=== PATIENT | female | born 1985 | race Caucasian/White ===

== ENCOUNTER 2016-06-22 18:59 | Emergency (ER) ==
[2016-06-22 19:18] VITALS: BP 117/82; TEMP 98.6; BMI 22.1
--- NOTE | 2016-06-22 19:29 | ED.PDOC ---
General ED Provider: Dr. JONATHON CORREA Chief Complaint: Thrush Stated Complaint: Patient states she noticed that her tongue was swollen after using an new flavor of Vaping. Swelling are on both side of tongue. Time Seen by Physician: 19:27 Mode of Arrival: Walk-In Information Source: Patient Exam Limitations: No limitations Primary Care Provider: BANDAR CUBA Nursing and Triage Documentation Reviewed and Agree: Yes EENT Complaint Exam - Dental/Oral Complaint/Exam Mechanism of Injury: No known trauma (used new vaping flavor) Timing: Constant Initial Severity: Mild Current Severity: Mild Character: Reports: Sharp Aggravating: Reports: None Alleviating: Reports: None Associated Signs and Symptoms: Denies: Swelling, Discharge, Fever, Foul odor, Foul taste in mouth Review of Systems - Review Of Systems Constitutional: Reports: No symptoms Eyes: Reports: No symptoms Ears, Nose, Mouth, Throat: Reports: Mouth pain, Mouth swelling Respiratory: Reports: No symptoms Cardiac: Reports: No symptoms GI: Reports: No symptoms : Reports: No symptoms Musculoskeletal: Reports: No symptoms Skin: Reports: No symptoms Neurological: Reports: Anxiety Endocrine: Reports: No symptoms Hematologic/Lymphatic: Reports: No symptoms All Other Systems: Reviewed and Negative Past Medical History - Past Medical History Endocrine: Reports: Hypothyroid Cardiovascular: Reports: None Respiratory: Reports: None Hematological: Reports: None Gastrointestinal: Reports: None Genitourinary: Reports: None Neuro/Psych: Reports: Anxiety, Depression, Other (Panic attack ) Musculoskeletal: Reports: None Cancer: Reports: None Last Menstrual Period: PT HAS HAD A HYSTERECTOMY - Surgical History General Surgical History: Reports: Hysterectomy, Tubal ligation - Family History Family History: Reports: None - Social History Smoking Status: Former smoker, Vaping Hx Substance Use: Yes (vaping ) Alcohol Screening: None - Immunizations Tetanus Shot up to Date: Yes Physical Exam - Physical Exam Appearance: Well-appearing Eyes: YURY, EOMI, Conjunctiva clear Neck: Supple Respiratory: Airway patent, Breath sounds clear, Breath sounds equal, Respirations nonlabored Cardiovascular: Tachycardia Neurological: Sensation intact, Motor intact, Reflexes intact, Cranial nerves intact, Alert, Oriented Psychiatric: Anxious Critical Care Note - Critical Care Note Total Time (mins): 0 Course - Course Vital Signs: Temp Pulse Resp BP Pulse Ox 06/22/16 19:02 98.6 F 102 H 18 117/82 100 Departure - Departure Time of Disposition: 19:50 Disposition: HOME SELF-CARE Discharge Problem: Thrush, oral Angioedema Qualifiers: Encounter type: initial encounter Qualifier Code: (T78.3XXA) Angioneurotic edema, initial encounter Instructions: Angioedema (ED), Oral Candidiasis (ED) Condition: Stable Pt referred to PMD for follow-up: Yes Additional Instructions: take medications (steroids) as prescribed. Stop Using VAPING agents. Prescriptions: Methylprednisolone [Medrol Dosepak] 4 mg PO DIRECTED #1 pkg Nystatin [Nystatin Oral Susp] 5 ml PO ACHS #100 cup Allergies/Adverse Reactions: Allergies aspirin Adverse Reaction (Verified 06/22/16 19:08) NOSEBLEEDS Home Medications: Ambulatory Orders Gabapentin 600 mg PO TID 05/24/14 Ibuprofen [Motrin] 600 mg PO Q6H PRN #30 tablet 05/24/14 Methylprednisolone [Medrol Dosepak] 4 mg PO DIRECTED #1 pkg 06/22/16 Nystatin [Nystatin Oral Susp] 5 ml PO ACHS #100 cup 06/22/16 Disposition Discussed With: Patient, Family
[2016-06-22] MEDS ORDERED: SOLU-MEDROL 125 MG IM STA (19:35)
== END 2016-06-22 20:05 | disposition home or self-care (01) ==
LOC: ED 18:59
DX: B37.0 Candidal stomatitis (principal); T78.3XXA Angioneurotic edema, initial encounter; F17.290 Nicotine dependence, other tobacco product, uncomplicated
CPT/HCPCS: 96372; 99282

== ENCOUNTER 2017-01-26 19:17 | Emergency (ER) ==
[2017-01-26 19:33] VITALS: BP 128/80; TEMP 98.5; BMI 21.9
[2017-01-26] MEDS ORDERED: SODIUM CHLORIDE 1,000 ML IV STA (19:35)
[2017-01-26 19:51] LABS: BASOPHILS # (AUTO) 0.1 K/uL (0-0.2); BASOPHILS % (AUTO) 0.6 % (0.0-3.0); EOSINOPHILS # (AUTO) 0.3 K/ul (0.0-0.7); EOSINOPHILS % (AUTO) 2.4 % (0.0-7.0); HEMATOCRIT 40.4 % (37.0-47.0); HEMOGLOBIN 14.3 g/dl (12.0-16.0); IMMATURE GRANULOCYTE % (AUTO) 0.3 % (0.0-5.0); LYMPHOCYTES # (AUTO) 3.4 K/uL (0.60-3.4); MEAN CORPUSCULAR HEMOGLOBIN 32.1 pg (27.0-31.0); MEAN CORPUSCULAR HGB CONC 35.4 (31.8-35.4); MEAN CORPUSCULAR VOLUME 90.6 fl (81.0-99.0); MONOCYTES # (AUTO) 0.7 K/uL (0.4-2.0); MONOCYTES % (AUTO) 5.4 (0-10); NEUTROPHILS # (AUTO) 7.8 K/ul (2.0-6.9); NEUTROPHILS % (AUTO) 63.3; PLATELET COUNT 320 10^3/uL (140-440); RED BLOOD COUNT 4.46 10^6/ul (4.20-5.40); WHITE BLOOD COUNT 12.25 K/ul (4.6-10.2)
[2017-01-26 20:08] LABS: BILIRUBIN,URINE Negative (NEGATIVE); KETONES,URINE Negative (NEGATIVE); LEUKOCYTE ESTERASE ,URINE Negative (NEGATIVE); NITRITE,URINE Negative (NEGATIVE); PROTEIN,URINE Negative (NEGATIVE); URINE, BLOOD Negative (NEGATIVE)
[2017-01-26 20:14] LABS: ALBUMIN 3.7 g/dL (3.4-5.0); ALBUMIN/GLOBULIN RATIO 1.09; ANION GAP 14.9; BILIRUBIN,TOTAL 0.17 mg/dL (0.00-1.20); BUN/CREATININE RATIO 9.41; CALCIUM 9.8 mg/dL (8.2-10.2); CREATININE 0.85 mg/dL (0.60-1.30); POTASSIUM 3.9 mmol/L (3.5-5.10); TOTAL PROTEIN 7.1 g/dL (6.4-8.2)
[2017-01-26 20:15] LABS: ADD URINE MICROSCOPIC YES
--- NOTE | 2017-01-26 20:15 | ED.PDOC ---
General ED Provider: Dr. JONATHON CORREA Chief Complaint: Nausea/Vomiting Stated Complaint: Pateint is a 31 Nausea, vomiting, diarrhea since Friday. Hoarse. Sore throat. Has been coughing on and off for couple months The cought is productive brownish greenish colored phlegm. Also complains of Cramping of the low to mid abdomen. Time Seen by Physician: 19:35 Mode of Arrival: Walk-In Information Source: Patient Primary Care Provider: BANDAR CUBA Nursing and Triage Documentation Reviewed and Agree: Yes GI Complaint Exam - Vomiting/Diarrhea Complaint/Exam Onset/Duration: 1 day Symptoms Are: Still present Episodes of Vomiting over last 24 Hours: 3 Episodes of Diarrhea Over Last 24 Hours: 5 Initial Severity: Moderate Current Severity: Moderate Character of Vomiting: Reports: Non-bilious Character of Diarrhea: Reports: Watery Aggravating: Reports: Food Alleviating: Reports: None Associated Signs and Symptoms: Reports: Cramping Last Oral Intake: prior to arrival Last Bowel Movement: Just prior to arrival Recent Positive Test: No Use of Oral Contraceptives: No Use of Depoprovera: No Surgical Obstruction Risk Factors: Reports: Prior abdominal surgery ( hyterectomy ) Abdominal Findings: Present: None Rectal Exam: Present: Normal Findings Differential Diagnoses: Viral Gastroenteritis, UTI Review of Systems - Review Of Systems Constitutional: Reports: Fever Eyes: Reports: No symptoms Ears, Nose, Mouth, Throat: Reports: Throat pain GI: Reports: Abdominal pain (cramping ), Diarrhea, Nausea, Poor appetite, Vomiting : Reports: No symptoms Musculoskeletal: Reports: No symptoms Skin: Reports: No symptoms Neurological: Reports: No symptoms All Other Systems: Reviewed and Negative Past Medical History - Past Medical History Endocrine: Reports: Hypothyroid Cardiovascular: Reports: None Respiratory: Reports: None Hematological: Reports: None Gastrointestinal: Reports: None Genitourinary: Reports: None Neuro/Psych: Reports: Anxiety, Depression, Other (Panic attack ) Musculoskeletal: Reports: None Cancer: Reports: None Last Menstrual Period: 2007 hyst - Surgical History General Surgical History: Reports: Hysterectomy, Tubal ligation. Denies: Appendectomy - Family History Family History: Reports: None - Social History Smoking Status: Current every day smoker, Light tobacco smoker Hx Substance Use: No Alcohol Screening: Occasionally - Immunizations Tetanus Shot up to Date: Yes Physical Exam - Physical Exam Appearance: Ill-appearing Ill-appearing: Mild Pain Distress: Mild Eyes: YURY, EOMI, Conjunctiva clear Neck: Supple Respiratory: Airway patent, Breath sounds clear, Breath sounds equal, Respirations nonlabored Cardiovascular: RRR, Pulses normal, No rub, No murmur GI/: Soft, Nontender, Bowel sounds hyperactive Musculoskeletal: Normal strength, ROM intact, No edema, No calf tenderness Skin: Warm, Dry, Normal color Neurological: Sensation intact, Motor intact, Reflexes intact, Cranial nerves intact, Alert, Oriented Psychiatric: Anxious Interpretation - Radiology Interpretation Radiology Interpretation By: ED Physician Radiology Results: Negative Exam Interpreted: CXR Critical Care Note - Critical Care Note Total Time (mins): 0 Course - Course Hematology/Chemistry: 01/26/17 19:45 01/26/17 19:45 Orders, Labs, Meds: Lab Review 01/26/17 01/26/17 01/26/17 19:45 19:45 19:50 WBC 12.25 H RBC 4.46 Hgb 14.3 Hct 40.4 MCV 90.6 MCH 32.1 H MCHC 35.4 RDW Coeff of Yara 13.2 Plt Count 320 Immature Gran % (Auto) 0.3 Neut % (Auto) 63.3 Lymph % (Auto) 28.0 [place] % (Auto) 5.4 Eos % (Auto) 2.4 Baso % (Auto) 0.6 Immature Gran # (Auto) 0.0 Neut # 7.8 H Lymph # 3.4 [place] # 0.7 Eos # 0.3 Baso # 0.1 Sodium 139 Potassium 3.9 Chloride 102 Carbon Dioxide 26 Anion Gap 14.9 BUN 8 Creatinine 0.85 Estimated GFR (MDRD) 77.00 BUN/Creatinine Ratio 9.41 Glucose 91 Calcium 9.8 Total Bilirubin 0.17 AST 15 ALT 15 Alkaline Phosphatase 79 Total Protein 7.1 Albumin 3.7 Globulin 3.4 Albumin/Globulin Ratio 1.09 Amylase 76 Lipase 26 Urine Color Yellow Urine Clarity Cloudy Urine pH 8.0 Ur Specific [place] 1.015 Urine Protein Negative Urine Glucose (UA) Negative Urine Ketones Negative Urine Blood Negative Urine Nitrite Negative Urine Bilirubin Negative Urine Urobilinogen 1.0 Ur Leukocyte Esterase Negative Ur Squamous Epith Cells 0-2 Amorphous Sediment 3+ Influenza A (Rapid) Influenza B (Rapid) 01/26/17 19:50 WBC RBC Hgb Hct MCV MCH MCHC RDW Coeff of Yara Plt Count Immature Gran % (Auto) Neut % (Auto) Lymph % (Auto) [place] % (Auto) Eos % (Auto) Baso % (Auto) Immature Gran # (Auto) Neut # Lymph # [place] # Eos # Baso # Sodium Potassium Chloride Carbon Dioxide Anion Gap BUN Creatinine Estimated GFR (MDRD) BUN/Creatinine Ratio Glucose Calcium Total Bilirubin AST ALT Alkaline Phosphatase Total Protein Albumin Globulin Albumin/Globulin Ratio Amylase Lipase Urine Color Urine Clarity Urine pH Ur Specific [place] Urine Protein Urine Glucose (UA) Urine Ketones Urine Blood Urine Nitrite Urine Bilirubin Urine Urobilinogen Ur Leukocyte Esterase Ur Squamous Epith Cells Amorphous Sediment Influenza A (Rapid) Negative Influenza B (Rapid) Negative Orders Category Date Time Status ED IV/MEDIPORT/POWERPORT .ONCE EMERGENCY 01/26/17 19:35 Active AMYLASE Stat LAB 01/26/17 19:45 Completed CBC W/ AUTO DIFF Stat LAB 01/26/17 19:45 Completed COMPREHENSIVE METABOLIC PANEL Stat LAB 01/26/17 19:45 Completed FLU A & B RAPID TEST [RAPID FLU A/B] Stat LAB 01/26/17 19:50 Completed LIPASE Stat LAB 01/26/17 19:45 Completed MOLECULAR GROUP A STREP Stat LAB 01/26/17 19:45 Results STREP SCREEN Stat LAB 01/26/17 19:45 Results URINALYSIS C & S IF INDICATED Stat LAB 01/26/17 19:50 Completed 0.9 % Sodium Chloride [Saline Flush] MEDS 01/26/17 19:35 Discontinued 1 syr IVF PRN PRN Dicyclomine HCl [Bentyl] MEDS 01/26/17 21:27 Discontinued 20 mg PO ONCE STA Ondansetron HCl/Pf [Zofran 4 mg/2 ml] MEDS 01/26/17 20:21 Discontinued 4 mg IVP ONCE STA Sodium Chloride 0.9% [Sodium Chloride] 1,000 ml MEDS 01/26/17 19:35 Discontinued IV BOLUS CHEST, 2 VIEWS PA & LAT Stat RADS 01/26/17 20:26 Taken Medications Discontinued Medications Generic Name Dose Route Start Last Admin Trade Name Freq PRN Reason Stop Dose Admin Dicyclomine HCl 20 mg 01/26/17 21:27 01/26/17 21:32 Bentyl PO 01/26/17 21:28 20 mg ONCE STA Administration Sodium Chloride 1,000 mls @ 1,000 mls/hr 01/26/17 19:35 01/26/17 20:11 Sodium Chloride IV 01/26/17 20:34 1,000 mls/hr BOLUS STA Administration Ondansetron HCl 4 mg 01/26/17 20:21 01/26/17 20:30 Zofran 4 Mg/2 Ml IVP 01/26/17 20:22 4 mg ONCE STA Administration Sodium Chloride 1 syr 01/26/17 19:35 01/26/17 20:11 Saline Flush IVF 1 syr PRN PRN Administration To flush IV Vital Signs: Temp Pulse Resp BP Pulse Ox 01/26/17 19:17 98.5 F 81 20 128/80 98 Departure - Departure Time of Disposition: 21:21 Disposition: HOME SELF-CARE Discharge Problem: Gastroenteritis Instructions: Gastroenteritis (ED) Condition: Fair Pt referred to PMD for follow-up: Yes Additional Instructions: Push fluids Followup with PCP in 3 days Prescriptions: Dicyclomine HCl [Bentyl] 10 mg PO TID PRN #20 capsule PRN Reason: Abdominal Pain Ondansetron HCl [Zofran Tab] 4 mg PO Q8H PRN #14 tablet PRN Reason: Nausea / Vomiting Allergies/Adverse Reactions: Allergies aspirin Adverse Reaction (Verified 01/26/17 19:27) NOSEBLEEDS Home Medications: Ambulatory Orders Gabapentin 600 mg PO TID 05/24/14 Ibuprofen [Motrin] 600 mg PO Q6H PRN #30 tablet 05/24/14 Dicyclomine HCl [Bentyl] 10 mg PO TID PRN #20 capsule 01/26/17 Lurasidone HCl [Latuda] 60 mg PO DAILY 01/26/17 Ondansetron HCl [Zofran Tab] 4 mg PO Q8H PRN #14 tablet 01/26/17 Disposition Discussed With: Patient, Family
[2017-01-26 20:19] LABS: FLU INTERNAL QC INTERNAL QC VALID; RAPID FLU A NEGATIVE (NEGATIVE); RAPID FLU B NEGATIVE (NEGATIVE)
[2017-01-26] MEDS ORDERED: ZOFRAN 4 MG/2 ML IVP STA (20:21)
[2017-01-26] MEDS ORDERED: BENTYL PO STA (21:27)
--- NOTE | 2017-01-27 07:36 | DI ---
EXAM: Chest two view, frontal and lateral views. HISTORY: Cough. COMPARISON: None available. FINDINGS: The heart size is normal. There is no pulmonary vascular congestion. The lungs are clear . No pleural effusion or pneumothorax is seen. No acute osseous abnormality identified. IMPRESSION: No acute cardiopulmonary process.
== END 2017-01-26 21:50 | disposition home or self-care (01) ==
LOC: ED 19:17
DX: K52.9 Noninfective gastroenteritis and colitis, unspecified (principal); F17.210 Nicotine dependence, cigarettes, uncomplicated
CPT/HCPCS: 36415; 80053; 81001; 82150; 83690; 85025; 87651; 87804; 87880; 96361; 96374; 96375; 99283

== ENCOUNTER 2018-04-09 17:45 | Emergency (ER) ==
[2018-04-09 17:53] VITALS: BP 142/95; TEMP 98.7; BMI 20.8
== END 2018-04-09 18:35 | disposition left against medical advice (07) ==
LOC: ED 17:45
DX: K08.89 Other specified disorders of teeth and supporting structures (principal)

== ENCOUNTER 2018-04-20 03:10 | Emergency (ER) ==
[2018-04-20 03:26] VITALS: TEMP 97; BMI 19.6
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
[2018-04-20] MEDS ORDERED: SODIUM CHLORIDE 1,000 ML IV STA ×2 (03:55→06:13)
[2018-04-20] MEDS ORDERED: MORPHINE 4 MG/ML SYRINGE IVP STA (03:56)
[2018-04-20] MEDS ORDERED: MORPHINE 4 MG/ML SYRINGE ONE (03:57)
[2018-04-20] MEDS ORDERED: MORPHINE 2 MG/ML SYRINGE ONE (04:38)
[2018-04-20] MEDS ORDERED: MORPHINE 2 MG/ML SYRINGE IVP STA ×2 (04:43→05:26)
[2018-04-20] MEDS ORDERED: ROCEPHIN 1 GM in SODIUM CHLORIDE 50 ML IV STA (05:34)
[2018-04-20] MEDS ORDERED: ROCEPHIN ONE (05:48)
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
[2018-04-20] MEDS ORDERED: LIDOCAINE HCL 1% SDV SUBCUT STA (06:10)
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
[2018-04-20] MEDS ORDERED: DILAUDID 1 MG/ML SYRINGE ONE (06:27)
[2018-04-20] MEDS ORDERED: DILAUDID 1 MG/ML SYRINGE IVP STA (06:54)
[2018-04-20 07:13] VITALS: BP 121/88
== END 2018-04-20 07:20 | disposition short-term general hospital (02) ==
LOC: ED 03:10
DX: R51 Headache (principal); M54.9 Dorsalgia, unspecified; M79.662 Pain in left lower leg; M79.661 Pain in right lower leg; M79.622 Pain in left upper arm; T14.8XXA Other injury of unspecified body region, initial encounter; R60.9 Edema, unspecified; R53.1 Weakness; S10.91XA Abrasion of unspecified part of neck, initial encounter; S00.91XA Abrasion of unspecified part of head, initial encounter; S01.00XA Unspecified open wound of scalp, initial encounter; V86.55XA Driver of 3- or 4- wheeled all-terrain vehicle (ATV) injured in nontraffic accident, initial encounter
CPT/HCPCS: 36415; 80053; 81001; 85025; 96361; 96365; 96375; 96376; 99285